=== PATIENT | male | born 1960 | race Caucasian/White ===

== ENCOUNTER 2016-09-08 19:31 | Inpatient (IN) | payer OTHER ==
[~2016-09-08] VITALS: Ht 182.9 cm; Wt 102.4 kg
--- NOTE | ~2016-09-08 | HC ---
[facility] [place] [address] CONSULTATION Name: LINDSEY LAYNE Room #: 301-I ADM IN ..#: [id number] Admission: 09/08/16 Attend Phys: Ava Lopez MD Discharge: Date of : 56 Report #: [id number] THIS REPORT FOR: //name// CC: Ava Alberto DATE OF SERVICE: 09/09/2016 REASON FOR CONSULTATION: Left renal mass in the setting of 20+ year history of diabetes mellitus and hypertension. HISTORY OF PRESENT ILLNESS: This 56-year-old male suffered an industrial accident in the early 1999s. 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 He required extensive fasciotomy and leg surgery to salvage his left leg. He has been left disabled since that time. He has an approximately 20-year history of diabetes mellitus and hypertension. The patient was in his usual state of good health until he developed the gradual onset of acute left lower quadrant pain, which he initially ascribed to a muscle strain. This pain grew worse and failed to improve at all. He ultimately sought the opinion of his PCP, who advised the patient to go to the Emergency Room for further evaluation and treatment. In the Emergency Room, a CT scan was obtained and revealed evidence of a significant left renal mass suspicious for renal cell carcinoma. He was admitted for further evaluation and treatment. The patient denies gross hematuria, nephrolithiasis, urinary tract infection or family history of renal disease. PAST MEDICAL HISTORY: Otherwise, remarkable for diabetes mellitus, hypertension and leg surgery as described. He has undergone previous back surgery and tonsillectomy. MEDICATIONS: On admission include amlodipine 5 mg daily, atorvastatin 40 mg daily, Delavan p.r.n., Zestril 20 mg daily and NovoLog sliding scale insulin. ALLERGIES: No known drug allergies. PERSONAL AND SOCIAL HISTORY: The patient does not use alcohol, tobacco or substances. He lives at home with his . He has a [id number] granddaughter. REVIEW OF SYSTEMS: Remarkable as described in the history of present illness. He denies constitutional complaints of fevers, chills, sweats or recent weight loss. He denies shortness of breath, productive cough, hemoptysis, chest pain, palpitations, nausea or vomiting. He has had abdominal pain as described. PHYSICAL EXAMINATION: [facility] [address] [place] [address] CONSULTATION Name: LINDSEY LAYNE Room #: 301-I [facility].#: [id number] Admission: 09/08/16 Attend Phys: Ava Lopez MD Discharge: Date of : 56 Report #: [id number] GENERAL: Reveals a well-developed and well-nourished male appearing his stated age, in no acute distress. VITAL SIGNS: Blood pressure 160/82, temperature 98.9, pulse 73 and respirations 18. SKIN: Warm and dry without rash or erythema. There is a well-healed fasciotomy scar in the left lower extremity. There is no gross clubbing, cyanosis, edema or adenopathy. HEENT: The head is normocephalic and atraumatic. The sclerae are white and the conjunctivae are not injected. The pharynx is benign. NECK: Supple. RESPIRATORY: Lung mondragon are grossly clear to percussion and auscultation. CARDIOVASCULAR: Reveals a regular rate and rhythm without rub. ABDOMEN: Reveals mild tenderness in the left mid and lower quadrants without luis guarding or rebound. No discrete mass or organomegaly could be appreciated. NEUROLOGIC: Reveals the patient to be alert and cooperative with a nonfocal exam. LABORATORY STUDIES: Available at this time include sodium 141, potassium 3.9, chloride 107, CO2 of 27, BUN 13, creatinine 1.1, glucose 124 and calcium 8.5. Albumin 3.2. White blood cell count 7800, hemoglobin 14.9, hematocrit 44.4 and platelet count 256,000. Urinalysis reveals clear yellow urine, specific gravity greater than 1.030, pH 5.5, trace protein, trace glucose, trace ketones and trace blood. ASSESSMENT: 1. I have reviewed the patient's CT scan that reveals definite evidence of a highly suspicious lesion in the lower pole of the left kidney. The patient needs urologic evaluation and will likely require robotic nephrectomy. 2. Longstanding diabetes mellitus with mild proteinuria suggesting possible underlying occult diabetic nephropathy. We will completely urologic evaluation with urinalysis and urine protein creatinine ratio. He is presently on converting enzyme inhibitor therapy. 3. Hypertension. PLAN: The patient is high risk for progressive renal disease, particularly in view of the likely need for nephrectomy and forcing him to rely upon a single kidney in the setting of longstanding diabetes mellitus and hypertension. We will provide him with additional dietary intervention to moderate the workload on his kidneys and continue angiotensin converting enzyme inhibitor as a renal sparing medication. [facility] [address] [place] [address] CONSULTATION Name: LINDSEY LAYNE Room #: 301-I ADM IN M.R.#: [id number] Admission: 09/08/16 Attend Phys: Ava Lopez MD Discharge: Date of : 56 Report #: [id number] Many thanks for this consultation. We will follow closely with you. <ELECTRONICALLY SIGNED> By: Krystian Cannon MD 09/10/16 0832 [id number] Krystian Cannon MD /nt
[2016-09-08 19:39] VITALS: BP 190/96
[2016-09-08 20:20] LABS: URINE BILIRUBIN NEGATIVE (Negative); URINE BLOOD TRACE (Negative); URINE COLOR YELLOW; URINE GLUCOSE-RANDOM* TRACE (Negative); URINE KETONES TRACE (Negative); URINE LEUKOCYTES-REFLEX NEGATIVE (Negative); URINE PROTEIN (DIPSTICK) TRACE (Negative); URINE SPECIFIC GRAVITY >= 1.030 (1.003-1.035); URINE UROBILINOGEN 0.2 E.U./dl (0.2-1.0)
[2016-09-08] MEDS ORDERED: HYDROCODONE-APA1 TA1 PO (20:32)
[2016-09-08] MEDS ORDERED: NORVASC5 MG PO (20:32)
[2016-09-08] MEDS ORDERED: ATORVASTATIN CA40 MG PO (20:32)
[2016-09-08] MEDS ORDERED: NOVOLOG100 UNIT/1 SUBQ (20:33)
[2016-09-08] MEDS ORDERED: LISINOPRIL20 MG PO (20:33)
[2016-09-08 20:47] LABS: CALCIUM 9.2 mg/dL (8.5-10.1); CREATININE 1.1 mg/dL (0.6-1.3); POTASSIUM 3.9 mmol/L (3.5-5.1)
[2016-09-08 20:50] LABS: ABSOLUTE NEUTROPHILS 5.7 thou/uL (1.4-8.2); BASOPHILS 0.6 % (0.0-2.0); EOSINOPHILS 0.3 % (0.0-3.0); HEMATOCRIT 44.4 % (42.0-52.0); HEMOGLOBIN 14.9 gm/dL (14.0-18.0); LYMPHOCYTES 17.7 % (24.0-44.0); MCH 30.7 pg (26.0-34.0); MCHC 33.7 g/dL (28.0-37.0); MCV 91.2 fL (80.0-100.0); MONOCYTES 8.6 % (1.0-8.0); PLATELET COUNT 256 thou/uL (150-400); POLYS 72.8 % (36.0-66.0); RBC 4.86 mil/uL (4.50-6.00); WBC 7.8 thou/uL (4.0-11.0)
[2016-09-08 20:53] LABS: ALBUMIN 3.9 g/dL (3.4-5.0); TOTAL BILIRUBIN 0.4 mg/dL (<0.1-1.0); TOTAL PROTEIN 7.4 g/dL (6.4-8.2)
[2016-09-08 20:58] LABS: MANUAL DIFF NO
[2016-09-09 00:30] VITALS: BP 170/75
[2016-09-09 04:06] VITALS: BP 168/96
[2016-09-09 06:31] LABS: ALBUMIN 3.2 g/dL (3.4-5.0); CALCIUM 8.5 mg/dL (8.5-10.1); CREATININE 1.1 mg/dL (0.6-1.3); MAGNESIUM 2.1 mg/dL (1.8-2.4); POTASSIUM 3.9 mmol/L (3.5-5.1); TOTAL BILIRUBIN 0.4 mg/dL (<0.1-1.0); TOTAL PROTEIN 6.3 g/dL (6.4-8.2)
[2016-09-09 07:35] VITALS: BP 160/82
[2016-09-09 13:19] LABS: URINE BILIRUBIN NEGATIVE (Negative); URINE BLOOD TRACE (Negative); URINE COLOR YELLOW; URINE GLUCOSE-RANDOM* 1+ (Negative); URINE KETONES TRACE (Negative); URINE NITRITE NEGATIVE (Negative); URINE PROTEIN (DIPSTICK) NEGATIVE (Negative); URINE SPECIFIC GRAVITY 1.015 (1.003-1.035); URINE UROBILINOGEN 0.2 E.U./dl (0.2-1.0)
[2016-09-09 15:20] VITALS: BP 154/80
[2016-09-09 19:30] VITALS: BP 173/88
[2016-09-09 20:10] LABS: URINE CREATININE-RANDOM* 94.6 mg/dL (Not Estab.); URINE PROTEIN-RANDOM* 12.5 mg/dL (Not Estab.)
[2016-09-09 23:45] VITALS: BP 166/92
[2016-09-10 03:15] VITALS: BP 147/67
[2016-09-10 06:09] LABS: HEMATOCRIT 42.8 % (42.0-52.0); HEMOGLOBIN 14.5 gm/dL (14.0-18.0); MCH 31.2 pg (26.0-34.0); MCHC 33.8 g/dL (28.0-37.0); MCV 92.2 fL (80.0-100.0); RBC 4.64 mil/uL (4.50-6.00); RDW 13.9 % (10.5-14.5); WBC 8.9 thou/uL (4.0-11.0)
[2016-09-10 06:33] LABS: ALBUMIN 3.5 g/dL (3.4-5.0); CALCIUM 9.1 mg/dL (8.5-10.1); CREATININE 1.2 mg/dL (0.6-1.3); PHOSPHORUS 3.1 mg/dL (2.5-4.9); POTASSIUM 4.3 mmol/L (3.5-5.1)
[2016-09-10 07:45] VITALS: BP 159/88
[2016-09-10] MEDS ORDERED: NORVASC5 MG PO (08:57)
[2016-09-10] MEDS ORDERED: HYDROCODONE-APA1 TA1 PO (08:57)
[2016-09-10] MEDS ORDERED: ONDANSETRON HCL4 M2 PO (08:57)
[2016-09-10 14:58] VITALS: BP 159/88
== END 2016-09-10 16:13 | disposition home or self-care (01) | DRG 687 ==
LOC: ER 19:31 → EROBS 22:04 → 3N 22:04
PROVIDERS: Emergency Medicine; Internal Medicine Nephrology; Nurse Practitioner
DX: C64.2 Malignant neoplasm of left kidney, except renal pelvis (principal); I16.1 Hypertensive emergency; I16.0 Hypertensive urgency; N28.89 Other specified disorders of kidney and ureter; I10 Essential (primary) hypertension; E11.9 Type 2 diabetes mellitus without complications; K57.90 Diverticulosis of intestine, part unspecified, without perforation or abscess without bleeding; E78.5 Hyperlipidemia, unspecified; J44.9 Chronic obstructive pulmonary disease, unspecified; Z90.49 Acquired absence of other specified parts of digestive tract; Z79.899 Other long term (current) drug therapy; Z80.59 Family history of malignant neoplasm of other urinary tract organ; Z80.0 Family history of malignant neoplasm of digestive organs; Z80.42 Family history of malignant neoplasm of prostate; Z80.3 Family history of malignant neoplasm of breast; R31.29 Other microscopic hematuria
CPT/HCPCS: 10795

== ENCOUNTER 2017-11-18 20:53 | Emergency (ER) | payer OTHER ==
[~2017-11-18] VITALS: Ht 182.9 cm; Wt 99.8 kg
[~2017-11-18 20:53] MED LIST: ATORVASTATIN CA40 MG PO; HYDROCODONE-APA1 TA1 PO; LISINOPRIL20 MG PO; NORVASC5 MG PO; NOVOLOG100 UNIT/1 SUBQ; ONDANSETRON HCL4 M2 PO
[2017-11-18] MEDS ORDERED: ASPIR 8181 MG PO (21:09)
[2017-11-18] MEDS ORDERED: HYDROCODONE-AP1 EAC6 PO (21:30)
[2017-11-18] MEDS ORDERED: ERYTHROMYCIN E3.5 G3 OPHTHALMIC (21:30)
== END 2017-11-18 21:37 | disposition home or self-care (01) ==
LOC: ER 20:53
DX: S05.01XA Injury of conjunctiva and corneal abrasion without foreign body, right eye, initial encounter (principal); I10 Essential (primary) hypertension; E11.9 Type 2 diabetes mellitus without complications; J44.9 Chronic obstructive pulmonary disease, unspecified; E78.00 Pure hypercholesterolemia, unspecified; W22.8XXA Striking against or struck by other objects, initial encounter; Y93.89 Activity, other specified; Y92.89 Other specified places as the place of occurrence of the external cause; Y99.8 Other external cause status

== ENCOUNTER 2020-01-25 23:26 | Emergency (ER) | payer OTHER ==
[~2020-01-25] VITALS: Ht 182.9 cm; Wt 104.3 kg
[~2020-01-25 23:26] MED LIST changes: +ASPIR 8181 MG PO; +ERYTHROMYCIN E3.5 G3 OPHTHALMIC; +HYDROCODONE-AP1 EAC6 PO
[2020-01-26 00:48] VITALS: BP 185/90
== END 2020-01-26 00:50 | disposition home or self-care (01) ==
LOC: ER 23:26
DX: R07.89 Other chest pain (principal); E11.9 Type 2 diabetes mellitus without complications; I10 Essential (primary) hypertension; J44.9 Chronic obstructive pulmonary disease, unspecified; E78.00 Pure hypercholesterolemia, unspecified; Z90.89 Acquired absence of other organs; Z98.890 Other specified postprocedural states; Z89.021 Acquired absence of right finger(s); Z79.899 Other long term (current) drug therapy; Z79.4 Long term (current) use of insulin; Z79.82 Long term (current) use of aspirin; X50.1XXA Overexertion from prolonged static or awkward postures, initial encounter; Y93.89 Activity, other specified; Y92.002 Bathroom of unspecified non-institutional (private) residence as the place of occurrence of the external cause; Y99.8 Other external cause status